=== PATIENT | male | born 1995 ===

== ENCOUNTER 2017-07-31 02:21 | Emergency (ER) | payer OTHER, SELFPAY ==
--- NOTE | 2017-07-31 09:28 | RAD ---
2 VIEWS LEFT ELBOW: Date: 07/31/17 HISTORY: Left elbow pain. FINDINGS: There is an osseous density seen at the most posterior aspect of the olecranon process of the ulna. H owever, this has the appearance more suggestive of a more remote injury or could possibly be developm ental in origin. No obvious acute fracture is seen and there is no evidence of dislocation. No joint effusion is appreciated. IMPRESSION: No acute osseous abnormality left elbow. If pain persists, follow-up imaging is advised. POS: [facility]
== END 2017-07-31 03:40 | disposition home or self-care (01) ==
LOC: ERS 02:21
DX: S52.022A Displaced fracture of olecranon process without intraarticular extension of left ulna, initial encounter for closed fracture (principal); F10.129 Alcohol abuse with intoxication, unspecified; Z87.891 Personal history of nicotine dependence; Y04.0XXA Assault by unarmed brawl or fight, initial encounter